=== PATIENT | female | born 1995 | race Caucasian/White ===

== ENCOUNTER 2016-10-12 14:02 | Emergency (ER) | payer OTHER ==
[~2016-10-12] VITALS: Ht 149.9 cm; Wt 48.6 kg
[~2016-10-12 14:02] MED LIST: CITRATE OF MAG296 ML PO; COLACE100 MG PO; FLONASE16 GM NS; MIRALAX17 GM PO; NAPROSYN500 MG PO; NO MEDS; Vicodin,Lortab 5/500 PO
[2016-10-12 14:13] VITALS: BP 136/95
== END 2016-10-12 15:23 | disposition left against medical advice (07) ==
LOC: EME 14:02
DX: G43.909 Migraine, unspecified, not intractable, without status migrainosus (principal); Z53.21 Procedure and treatment not carried out due to patient leaving prior to being seen by health care provider